=== PATIENT | female | born 1980 | race Caucasian/White ===

== ENCOUNTER 2018-01-23 10:20 | Inpatient (IN) ==
[2018-01-23] MEDS ORDERED: ceFAZolin 2 GM Premix Inj 2 GM/50 ML PIGGYBACK IV.SIG PRN (11:17)
[2018-01-23] MEDS ORDERED: Citric Acid/Sodium Citrate Liq 30 ML UDC PO SCH (11:30)
--- NOTE | 2018-01-23 11:45 | P.HPOB ---
History of Present Illness Service: ob Primary Care Physician: No Primary Care Physician Chief Complaint: breech, labor History of Present Illness: 37 yo wiht iup at 37w5d in breech presentation, assessed in office today and noted to be 5/50/-2. She is not feeling contractions and did not feel them wiht prior pregnancies either. She has bloody show. No lof. discussed with history of rapid delivery and malpresentation, we should proceed with cd today. She is amenable. She has udf. She has previously signed btl consent forms. AMA, declined testing during pnc. Of note, pt had u/s last week for presentation, noted to be breech but also short long bones. cfDNA result pending. HC and AC large, not likely iugr. 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 - Inpatient Certification I certify that the inpatient services were ordered in accordance with Medicare regulations governing the order. This includes certification that hospital inpatient services are reasonable and necessary and in the case of services not specified as inpatient-only under 42 CFR 419.22(n), that they are appropriately provided as inpatient services in accordance to with the 2-midnight benchmark under 43 CFR 412.3(e) Estimated Total Length of Stay (Days): 3 Plans for Post Hospital Care: Home Review of Systems All other systems reviewed negative except as stated in HPI Medications and Allergies Allergies Allergy/AdvReac Type Severity Reaction Status Date / Time No Known Allergies Allergy Unknown No Uncoded 01/23/18 11:08 allergies Exam Vital signs: Vital Signs 01/23/18 10:49 Temperature 98.3 F Intake & Output 01/22/18 01/23/18 01/23/18 18:59 06:59 18:59 Weight 78.018 kg - Constitutional no acute distress - Routine HEENT Exam Head: Present: normocephalic Eye: Present: EOMI - Routine Chest/Breast/Axilla Exam Chest wall: Absent: tenderness, mass - Routine Respiratory Exam Absent: accessory muscle use, decreased breath sounds, prolonged expiratory phase, rhonchi, stridor, wheezes - Routine Cardiovascular Exam Present: RRR - Routine Exam Comments: /-2, mid, soft - Routine Extremities Exam Absent: cyanosis, clubbing, edema Results - Labs CBC & Chem 7: 01/23/18 11:20 Group B Strep: Negative Caprini VTE Risk Assessment Caprini VTE Risk Assessment: No/Low Risk (score <= 1) Caprini Risk Assessment Model: Point Value = 1 Point Value = 2 Point Value = 3 Point Value = 5 Age 41-60 Minor surgery BMI > 25 kg/m2 Swollen legs Varicose veins or History of unexplained or recurrent spontaneous Oral contraceptives or hormone replacement Sepsis (< 1 month) Serious lung disease, including pneumonia (< 1 month) Abnormal pulmonary function Acute myocardial infarction Congestive heart failure (< 1 month) History of inflammatory bowel disease Medical patient at bed rest Age 61-74 Arthroscopic surgery Major open surgery (> 45 min) Laparoscopic surgery (> 45 min) Malignancy Confined to bed (> 72 hours) Immobilizing plaster cast Central venous access Age >= 75 History of VTE Family history of VTE Factor V Leiden Prothrombin [id number] Lupus anticoagulant Anticardiolipin antibodies Elevated serum homocysteine Heparin-induced thrombocytopenia Other congenital or acquired thrombophilia Stroke (< 1 month) Elective arthroplasty Hip, pelvis, or leg fracture Acute spinal cord injury (< 1 month) Prophylaxis Regimen: Total Risk Factor Score Risk Level Prophylaxis Regimen 0-1 Low Early ambulation 2 Moderate Order ONE of the following: *Sequential Compression Device (SCD) *Heparin 5000 units SQ BID 3-4 Higher Order ONE of the following medications: *Heparin 5000 units SQ TID *Enoxaparin/Lovenox 40 mg SQ daily (WT < 150 kg, CrCl > 30 mL/min) *Enoxaparin/Lovenox 30 mg SQ daily (WT < 150 kg, CrCl > 10-29 mL/min) *Enoxaparin/Lovenox 30 mg SQ BID (WT < 150 kg, CrCl > 30 mL/min) AND/OR *Sequential Compression Device (SCD) 5 or more Highest Order ONE of the following medications: *Heparin 5000 units SQ TID (Preferred with Epidurals) *Enoxaparin/Lovenox 40 mg SQ daily (WT < 150 kg, CrCl > 30 mL/min) *Enoxaparin/Lovenox 30 mg SQ daily (WT < 150 kg, CrCl > 10-29 mL/min) *Enoxaparin/Lovenox 30 mg SQ BID (WT < 150 kg, CrCl > 30 mL/min) AND *Sequential Compression Device (SCD) Assessment and Plan - Diagnosis (1) Malpresentation before onset of labor Code(s): O32.9XX0 - Maternal care for malpresentation of fetus, unspecified, not applicable or unspecified Status: Acute (2) Labor and delivery indication for care or intervention Code(s): O75.9 - Complication of labor and delivery, unspecified Status: Acute (3) Advanced maternal age (AMA) in Status: Acute (4) Encounter for sterilization Code(s): Z30.2 - Encounter for sterilization Status: Acute - Plan 37yo with iup at 37w5d in labor, breech presentation necessitating cd. She has udf. Medicaid consents signed in office, consent sent to L&D. AMA- did nto have cfDNA or msAFP. cfDNA ordered last week when short long bones noted. Anatomy u/s was normal. GBS neg Discharge Planning: pod3
[2018-01-23 12:02] LABS: Baso % (Auto) 0.4 % (0.0-2.0); Eos % (Auto) 0.3 % (0.0-4.0); Hematocrit 34.4 % (35.0-46.0); Hemoglobin 11.8 gm/dL (11.6-15.3); Lymph % (Auto) 24.2 % (9.0-44.0); Mean Corpuscular HGB Conc 34.3 % (32.0-36.0); Mean Corpuscular Hemoglobin 31.5 pg (27.0-34.0); Mean Corpuscular Volume 91.9 fL (80.0-100.0); Mean Platelet Volume 7.3 fL (7.0-11.0); Mono # (Auto) 0.7 th/mm3 (0.0-0.9); Mono % (Auto) 8.3 % (0.0-8.0); Neut # (Auto) 5.6 th/mm3 (1.8-7.7); Neut % (Auto) 66.8 % (16.0-70.0); Platelet Count 270 th/mm3 (150-450); Red Blood Count 3.75 mil/mm3 (4.00-5.30); Red Cell Distribution Width 13.2 % (11.6-17.2); White Blood Count 8.4 th/mm3 (4.0-11.0)
[2018-01-23 12:49] LABS: Bacteria,Urine Rare /hpf; Bilirubin,Urine Negative (Negative); Clarity,Urine Hazy (Clear); Color,Urine Yellow (Yellw/Straw); Glucose,Urine (UA) Negative (Negative); Leukocyte Esterase,Urine Negative (Negative); Mucus,Urine Few /lpf (Occasional); Nitrite,Urine Negative (Negative); Squamous Epithelial Cell,Urine 9 /hpf (0-5)
[2018-01-23] MEDS ORDERED: Ketorolac Inj 30 MG/ML (IVP) Vial IV.PUSH ONE (12:51)
[2018-01-23 12:53] LABS: Amphetamine Screen,Urine Neg (Neg); Barbiturate Screen,Urine Neg (Neg); Cannabinoid Screen,Urine Neg (Neg); Cocaine Screen,Urine Neg (Neg)
[2018-01-23 12:55] LABS: Opiate Screen,Urine Pos (Neg)
[2018-01-23] MEDS ORDERED: Influenza (Quadrivalent) Vaccine 0.5 ML Syringe IM ONE (13:45)
[2018-01-23] MEDS ORDERED: fentaNYL Citrate Inj 100 MCG/2 ML Ampul ONE (13:47)
[2018-01-23] MEDS ORDERED: Simethicone 80 MG Chew Tablet PO PRN (14:15)
[2018-01-23] MEDS ORDERED: Acetaminophen 325 MG Tablet PO PRN (14:15)
[2018-01-23] MEDS ORDERED: Zolpidem Tartrate 5 MG Tablet PO PRN (14:15)
[2018-01-23] MEDS ORDERED: Morphine Sulfate PF Inj 5 MG/10 ML Ampul ONE (14:23)
[2018-01-23] MEDS ORDERED: Oxytocin 30 Units/500ml Premix 30 UNITS/500 ML BAG IV.SIG ONE (14:30)
--- NOTE | 2018-01-23 14:33 | P.OBDELI ---
Procedure Note - Pre Op Diagnosis (1) Malpresentation before onset of labor (2) Labor and delivery indication for care or intervention (3) Advanced maternal age (AMA) in (4) Encounter for sterilization - Post Op Diagnosis (1) Malpresentation before onset of labor (2) Labor and delivery indication for care or intervention (3) Advanced maternal age (AMA) in (4) Encounter for sterilization Performed by: Ella Banda MD Procedure: Primary Low Transverse Section, Other (bilateral tubal ligation) Indication for Delivery: malposition (double footling breech) Informed Consent Obtained: For anesthesia, For procedure Confirmed Correct: Patient, Procedure, Site, Time-out taken Anesthesia: Spinal Medication Prior to Procedure: As documented in eMAR Monitoring During Procedure: Blood pressure monitoring, Pulse oximetry Urinary Catheter: Inserted using sterile technique, To dependent drainage, ml urine output (200) Sterile Preparation: In usual fashion, With 2% chlorexidine (Hibiclens), With drapes to expose affected area Position: Supine with wedge to right side, Supine with safety belt applied - Operative Features Skin Incision: Pfannenstiel Uterine Incision: Low transverse w/knife / blunt ext Membranes Ruptured: Appearance of fluid (clear) Presentation: Breech Status of : Viable, Cord blood Placenta Delivered: Intact Medications: Antibiotics, Oxytocin Estimated blood loss (mL): 700 Procedure Tolerated: Well Maternal Condition: Stable Baby Condition: Stable Procedure in Detail: Indication: Breech presentation in labor and undesired fertility Intraoperative findings: Normal uterus, tubes and ovaries. Complications: none Counts: Correct x 3 Specimens: cord blood Dispo: to pacu Procedure in detail: After review of informed consent, pt was taken to the OR where spinal anesthesia was performed w/o complication. She was placed in a dorsal supine position wiht a slight left lateral tilt. She had ruggiero placed in sterile fashion. SCDs to bilateral extremities. Preoperative antibiotics given preincision. Abdomen and perineum were prepped and draped in sterile fashion. A Pfannenstiel skin incision was made with the scalpel and carried down to the underlying layer of fascia with the bovie. The fascia was incised in the midline; this incision was extended bilaterally w James scissors. The superior edge, followed by the inferior edge, of the fascia was grasped with camelia clamps, elevated and from the rectus muscles with james scissors and bluntly. The rectus muscles were in the midline with the hemostat. Peritoneum was entered bluntly and this incision was extended to allow for good visualization of the lower uterine segment. Bladder blade was inserted. A bladder flap was created with Metzenbaum scissors and further developed digitally. The bladder blade was then replaced. A low transverse uterine incision was made with the scalpel and extended bluntly in a cephalocaudal fashion. Clear amniotic fluid noted. Double footling breech presentation noted. Both feet were grasped, baby delivered to the level of the hips. The baby was grasped with a moist towel and delivered to the level of the scapula. the was rotated to deliver the anterior right arm; this was swept across that chest. The baby was rotated in the opposite direction and the subsequent arm delivered in a similar fashion. the baby's body was rested on the surgeon's arm, the head was flexed and delivered readily. Viable male . Delayed cord clamping of 45 seconds was performed. Baby was handed off to team. Cord blood was collected. IV infusion of pitocin was started immediately after the delivery of the . The placenta was delivered w gentle cord traction and uterine massage. The uterus was exteriorized. The uterine cavity was cleared with moistened laparotomy sponges. The uterus was repaired in one layer with number 1 chromic in a running locked fashion. There were some small bleeding vessels immediately inferior to the hysterotomy in the central aspect of the incision; these were made hemostatic with 2-0 chromic. Decision was made to not perform a second layer to avoid causing bleeding at this site. Attention was then turned to the Ashley btl. The left tube was grasped with a Slatington clamp and followed out to the fimbriated end. The tue was grasped approximately 4 cm from the cornual region. The tube was doubly suture ligated with plain gut. Bilateral ostia and good hemostasis noted. This was performed on the right side in an identical fashion. The posterior cul de sac was irrigated and suctioned. The uterus and tubes were noted to be hemostatic. It was returned to the abdomen. The anterior cul- de-sac was irrigated and suctioned. The peritoneum was closed with 2-0 chromic in a running fashion. The fascia was closed with number 1 vicryl in a running fashion. Subcutaneous tissue was irrigated and hemostasis obtained w the Bovie. The subcutaneous tissue was brought together with 2-0 chromic in a running fashion. The skin was closed with 3-0 monocryl in a subcuticular fashion. A sterile pressure dressing was placed. PT was sent to pacu in stable condition. - Infant Infant: Male Male A Delivery Date: 01/23/18 Infant Delivery Time: 13:24 Weight: 3.544 kg Delivery of Infant: Uneventful (breech extraction) score (1 min): 8 score (5 min): 9
[2018-01-23] MEDS ORDERED: Oxytocin 30 Units/500ml Premix 30 UNITS/500 ML BAG ONE (14:50)
[2018-01-23] MEDS ORDERED: Naloxone Inj 0.4 MG/ML Vial IV.PUSH PRN (15:27)
[2018-01-23] MEDS ORDERED: Oxytocin 30 Units/500ml Premix 30 UNITS/500 ML BAG IV.SIG PRN (19:15)
[2018-01-24 05:49] LABS: Baso % (Auto) 0.2 % (0.0-2.0); Eos # (Auto) 0.1 th/mm3 (0.0-0.4); Eos % (Auto) 0.6 % (0.0-4.0); Hematocrit 27.3 % (35.0-46.0); Hemoglobin 9.6 gm/dL (11.6-15.3); Lymph # (Auto) 1.9 th/mm3 (1.0-4.8); Lymph % (Auto) 18.7 % (9.0-44.0); Mean Corpuscular HGB Conc 35.3 % (32.0-36.0); Mean Corpuscular Hemoglobin 31.7 pg (27.0-34.0); Mean Corpuscular Volume 89.8 fL (80.0-100.0); Mean Platelet Volume 7.3 fL (7.0-11.0); Mono # (Auto) 1.1 th/mm3 (0.0-0.9); Mono % (Auto) 11.1 % (0.0-8.0); Neut % (Auto) 69.4 % (16.0-70.0); Platelet Count 276 th/mm3 (150-450); Red Blood Count 3.04 mil/mm3 (4.00-5.30); Red Cell Distribution Width 13.4 % (11.6-17.2); White Blood Count 10.2 th/mm3 (4.0-11.0)
--- NOTE | 2018-01-24 08:23 | P.PNOB ---
Subjective Post op day: 1 Interval history: doing well, ambulating, voiding, alex po. Doing well w pain control Objective Vital Signs/I&O: Vital Signs 01/23/18 10:49 01/23/18 10:50 01/23/18 14:19 Temperature 98.3 F 97.8 F Pulse Rate 94 H Respiratory Rate 16 Blood Pressure 124/72 01/23/18 14:25 01/23/18 14:43 01/23/18 15:00 Temperature 97.9 F Pulse Rate 87 98 H 83 Respiratory Rate 15 18 16 Blood Pressure 127/74 129/72 142/67 H 01/23/18 20:00 01/23/18 20:28 01/24/18 00:00 Temperature 97.7 F 98.2 F Pulse Rate 80 88 Respiratory Rate 18 18 18 Blood Pressure 125/79 118/71 01/24/18 04:00 01/24/18 04:39 01/24/18 04:40 Temperature 98.1 F Pulse Rate 91 H Respiratory Rate 18 18 16 Blood Pressure 128/82 Intake & Output 01/23/18 01/24/18 01/24/18 18:59 06:59 18:59 Intake Total 50 / 50 Balance 50 / 50 Weight 78.018 kg Intake: IV 50 / 50 Ancef 2 GM Premix Inj 2 gm In 50 / 50 50 ml @ 100 mls/hr IV.SIG TRANSFORMATION ARCHITECT PRN Rx#:[id number] Result Diagrams: 01/24/18 04:07 Objective Remarks: GENERAL: Well-nourished, well-developed patient. CARDIOVASCULAR: Regular rate and rhythm without murmurs, gallops, or rubs. RESPIRATORY: Breath sounds equal bilaterally. No accessory muscle use. ABDOMEN/GI: Abdomen soft, non-tender, bowel sounds present. Incision: dressing Clean, dry and intact. Fundus: Firm, non-tender at umbilicus. GENITOURINARY: Light to moderate bleeding. EXTREMITIES: No cyanosis or edema, non-tender, without signs of DVT. Medications and IVs: Active Medications Acetaminophen (Tylenol) 650 mg PO Q6H PRN PRN Reason: PAIN SCALE 1 TO 2 Citric Acid/Sodium Citrate (Sodium Citrate/Citric Acid Liq) 30 ml PO TRANSFORMATION ARCHITECT IVAN Stop: 01/27/18 11:29 Last Admin: 01/23/18 12:43 Dose: 30 ml Diphenhydramine HCl (Benadryl Inj) 25 mg IV.PUSH Q6H PRN PRN Reason: MILD TO MODERATE ITCHING Stop: 01/24/18 15:26 Diphenhydramine HCl (Benadryl) 50 mg PO Q6H PRN PRN Reason: MILD TO MODERATE ITCHING Stop: 01/24/18 15:26 Diphtheria/Pertussis/Tetanus Vacc (Boostrix Vaccine Inj) 0.5 ml IM .ONCE ONE Stop: 01/24/18 16:01 Cefazolin Sodium/Dextrose (Ancef 2 Gm Premix Inj) 2 gm in 50 mls @ 100 mls/hr IV.SIG TRANSFORMATION ARCHITECT PRN PRN Reason: ON-CALL Stop: 01/27/18 11:16 Last Infusion: 01/23/18 12:55 Dose: Infused Lactated Ringer's (Lr 1000 Ml Inj) 1,000 mls @ 100 mls/hr IV.CONT .Q10H IVAN Stop: 01/24/18 15:14 Last Admin: 01/23/18 20:29 Dose: 100 mls/hr Oxytocin (Pitocin 30 Units/Ns 500 Ml Premix) 30 units in 500 mls @ 100 mls/hr IV.SIG UNSCH PRN PRN Reason: Heavy bleeding Ibuprofen (Motrin) 800 mg PO Q8H PRN PRN Reason: cramping Last Admin: 01/23/18 21:15 Dose: 800 mg Measles/Mumps/Rubella Vaccine Live (M-M-R Ii Vaccine Inj) 0.5 ml SQ .ONCE ONE Stop: 01/24/18 16:01 Miscellaneous Information (Misc Nursing Information) 1 each OTHER UNSCH PRN PRN Reason: SEE LABEL COMMENTS Stop: 01/24/18 15:26 Miscellaneous Information (Misc Nursing Information) 1 each OTHER UNSCH PRN PRN Reason: SEE LABEL COMMENTS Stop: 01/24/18 15:26 Naloxone HCl (Narcan Inj) 0.4 mg IV.PUSH UNSCH PRN PRN Reason: SEE LABEL COMMENTS Stop: 01/24/18 15:26 Ondansetron HCl (Zofran Inj) 4 mg IV.PUSH Q6H PRN PRN Reason: NAUSEA OR VOMITING Oxycodone/Acetaminophen (Percocet 5/325 Mg) 1 tab PO Q4H PRN PRN Reason: PAIN SCALE 3 TO 5 Oxycodone/Acetaminophen (Percocet 5/325 Mg) 2 tab PO Q4H PRN PRN Reason: PAIN SCALE 6 TO 10 Last Admin: 01/24/18 04:09 Dose: 2 tab Senna/Docusate Sodium (Angelia-Colace) 2 tab PO Q12H PRN PRN Reason: CONSTIPATION Simethicone (Mylicon Chew) 80 mg PO QID PRN PRN Reason: FLATULENCE Sodium Chloride (Ns Flush) 2 ml IV.FLUSH BID IVAN Last Admin: 01/24/18 00:51 Dose: Not Given Sodium Chloride (Ns Flush) 2 ml IV.FLUSH UNSCH PRN PRN Reason: FLUSH AFTER USING IV ACCESS Zolpidem Tartrate (Ambien) 5 mg PO HS PRN PRN Reason: INSOMNIA Assessment and Plan - Diagnosis (1) Malpresentation before onset of labor Code(s): O32.9XX0 - Maternal care for malpresentation of fetus, unspecified, not applicable or unspecified Status: Acute (2) Labor and delivery indication for care or intervention Code(s): O75.9 - Complication of labor and delivery, unspecified Status: Acute (3) Advanced maternal age (AMA) in Status: Acute (4) Encounter for sterilization Code(s): Z30.2 - Encounter for sterilization Status: Acute - Plan pod 1 s/p primary ltcd for breech, and btl - cont routine care - ambulate, shower and remove dressing today Discharge Planning: pod3
[2018-01-24] MEDS ORDERED: Measles/Mumps/Rubella Vaccine Inj 0.5 ML Vial SQ ONE (16:00)
[2018-01-24] MEDS ORDERED: Diphtheria/Tetanus/Pertussis Vaccine Inj 0.5 ML Syringe IM ONE (16:00)
[2018-01-24] MEDS: Senna/Docusate Sodium 8.6/50 MG Tablet PO PRN (19:08)
[2018-01-25] MEDS: Senna/Docusate Sodium 8.6/50 MG Tablet PO PRN ×2 (09:26→20:42)
--- NOTE | 2018-01-25 12:33 | P.PNOB ---
Subjective Post op day: 2 Interval history: doing well desires circumcision but after photos (occuring now) nursing well no complaints lochia minimal Objective Vital Signs/I&O: Vital Signs 01/24/18 20:00 01/25/18 08:00 Temperature 97.9 F 98.2 F Pulse Rate 105 H 100 H Respiratory Rate 18 20 Blood Pressure 130/81 107/70 Result Diagrams: 01/24/18 04:07 Objective Remarks: GENERAL: Well-nourished, well-developed patient. CARDIOVASCULAR: Regular rate and rhythm without murmurs, gallops, or rubs. RESPIRATORY: Breath sounds equal bilaterally. No accessory muscle use. ABDOMEN/GI: Abdomen soft, non-tender, bowel sounds present. Incision: Clean, dry and intact. Fundus: Firm, non-tender at umbilicus. some bruising GENITOURINARY: Light to moderate bleeding. EXTREMITIES: No cyanosis or edema, non-tender, without signs of DVT. Medications and IVs: Active Medications Acetaminophen (Tylenol) 650 mg PO Q6H PRN PRN Reason: PAIN SCALE 1 TO 2 Citric Acid/Sodium Citrate (Sodium Citrate/Citric Acid Liq) 30 ml PO [employer]ER [employer] [facility] Stop: 01/27/18 11:29 Last Admin: 01/23/18 12:43 Dose: 30 ml Cefazolin Sodium/Dextrose (Ancef 2 Gm Premix Inj) 2 gm in 50 mls @ 100 mls/hr IV.SIG LOADER [employer] PRN PRN Reason: ON-CALL Stop: 01/27/18 11:16 Last Infusion: 01/23/18 12:55 Dose: Infused Oxytocin (Pitocin 30 Units/Ns 500 Ml Premix) 30 units in 500 mls @ 100 mls/hr IV.SIG UNSCH PRN PRN Reason: Heavy bleeding Ibuprofen (Motrin) 800 mg PO Q8H PRN PRN Reason: cramping Last Admin: 01/25/18 06:37 Dose: 800 mg Ondansetron HCl (Zofran Inj) 4 mg IV.PUSH Q6H PRN PRN Reason: NAUSEA OR VOMITING Oxycodone/Acetaminophen (Percocet 5/325 Mg) 1 tab PO Q4H PRN PRN Reason: PAIN SCALE 3 TO 5 Last Admin: 01/24/18 08:50 Dose: 1 tab Oxycodone/Acetaminophen (Percocet 5/325 Mg) 2 tab PO Q4H PRN PRN Reason: PAIN SCALE 6 TO 10 Last Admin: 01/25/18 11:00 Dose: 2 tab Senna/Docusate Sodium (Angelia-Colace) 2 tab PO Q12H PRN PRN Reason: CONSTIPATION Last Admin: 01/25/18 09:26 Dose: 2 tab Simethicone (Mylicon Chew) 80 mg PO QID PRN PRN Reason: FLATULENCE Sodium Chloride (Ns Flush) 2 ml IV.FLUSH BID IVAN Last Admin: 01/25/18 09:22 Dose: Not Given Sodium Chloride (Ns Flush) 2 ml IV.FLUSH UNSCH PRN PRN Reason: FLUSH AFTER USING IV ACCESS Zolpidem Tartrate (Ambien) 5 mg PO HS PRN PRN Reason: INSOMNIA Assessment and Plan - Diagnosis (1) Malpresentation before onset of labor Code(s): O32.9XX0 - Maternal care for malpresentation of fetus, unspecified, not applicable or unspecified Status: Acute (2) Labor and delivery indication for care or intervention Code(s): O75.9 - Complication of labor and delivery, unspecified Status: Acute (3) Advanced maternal age (AMA) in Status: Acute (4) Encounter for sterilization Code(s): Z30.2 - Encounter for sterilization Status: Acute - Plan pod 1 s/p primary ltcd for breech, and btl - cont routine care - ambulate, shower and remove dressing today POD 2 doing well anticipate discharge tomorrow am after circumcision Discharge Planning: pod3
[2018-01-26] MEDS: Senna/Docusate Sodium 8.6/50 MG Tablet PO PRN (08:26)
--- NOTE | 2018-01-26 09:58 | P.PNOB ---
Subjective Post op day: 3 Interval history: doing well nursing no pain of significant lochia minimal Objective Vital Signs/I&O: Vital Signs 01/25/18 20:00 01/26/18 08:00 Temperature 98.1 F 97.7 F Pulse Rate 64 108 H Respiratory Rate 18 20 Blood Pressure 130/77 123/70 Result Diagrams: 01/24/18 04:07 Objective Remarks: GENERAL: Well-nourished, well-developed patient. CARDIOVASCULAR: Regular rate and rhythm without murmurs, gallops, or rubs. RESPIRATORY: Breath sounds equal bilaterally. No accessory muscle use. ABDOMEN/GI: Abdomen soft, non-tender, bowel sounds present. Incision: Clean, dry and intact. Fundus: Firm, non-tender at umbilicus. GENITOURINARY: Light to moderate bleeding. EXTREMITIES: No cyanosis or edema, non-tender, without signs of DVT. Medications and IVs: Active Medications Acetaminophen (Tylenol) 650 mg PO Q6H PRN PRN Reason: PAIN SCALE 1 TO 2 Citric Acid/Sodium Citrate (Sodium Citrate/Citric Acid Liq) 30 ml PO [facility] IVAN Stop: 01/27/18 11:29 Last Admin: 01/23/18 12:43 Dose: 30 ml Cefazolin Sodium/Dextrose (Ancef 2 Gm Premix Inj) 2 gm in 50 mls @ 100 mls/hr IV.SIG [facility] PRN PRN Reason: ON-CALL Stop: 01/27/18 11:16 Last Infusion: 01/23/18 12:55 Dose: Infused Oxytocin (Pitocin 30 Units/Ns 500 Ml Premix) 30 units in 500 mls @ 100 mls/hr IV.SIG UNSCH PRN PRN Reason: Heavy bleeding Ibuprofen (Motrin) 800 mg PO Q8H PRN PRN Reason: cramping Last Admin: 01/26/18 08:27 Dose: 800 mg Ondansetron HCl (Zofran Inj) 4 mg IV.PUSH Q6H PRN PRN Reason: NAUSEA OR VOMITING Oxycodone/Acetaminophen (Percocet 5/325 Mg) 1 tab PO Q4H PRN PRN Reason: PAIN SCALE 3 TO 5 Last Admin: 01/24/18 08:50 Dose: 1 tab Oxycodone/Acetaminophen (Percocet 5/325 Mg) 2 tab PO Q4H PRN PRN Reason: PAIN SCALE 6 TO 10 Last Admin: 01/26/18 08:28 Dose: 2 tab Senna/Docusate Sodium (Angelia-Colace) 2 tab PO Q12H PRN PRN Reason: CONSTIPATION Last Admin: 01/26/18 08:26 Dose: 2 tab Simethicone (Mylicon Chew) 80 mg PO QID PRN PRN Reason: FLATULENCE Sodium Chloride (Ns Flush) 2 ml IV.FLUSH BID IVAN Last Admin: 01/26/18 08:25 Dose: Not Given Sodium Chloride (Ns Flush) 2 ml IV.FLUSH UNSCH PRN PRN Reason: FLUSH AFTER USING IV ACCESS Zolpidem Tartrate (Ambien) 5 mg PO HS PRN PRN Reason: INSOMNIA Assessment and Plan - Diagnosis (1) Malpresentation before onset of labor Code(s): O32.9XX0 - Maternal care for malpresentation of fetus, unspecified, not applicable or unspecified Status: Acute (2) Labor and delivery indication for care or intervention Code(s): O75.9 - Complication of labor and delivery, unspecified Status: Acute (3) Advanced maternal age (AMA) in Status: Acute (4) Encounter for sterilization Code(s): Z30.2 - Encounter for sterilization Status: Acute - Plan pod 1 s/p primary ltcd for breech, and btl - cont routine care - ambulate, shower and remove dressing today POD 2 doing well anticipate discharge tomorrow am after circumcision POD 3 ready for discharge and counseled circumcision done RTO 1 week or prn Discharge Planning: pod3
== END 2018-01-26 14:00 | disposition home or self-care (01) ==
LOC: H2E 10:20 → H1EA 15:50
PROVIDERS: ADMIT Obstetrics & Gynecology; ATTEND Obstetrics & Gynecology